=== PATIENT | male | born 1980 | race African-American/Black ===

== ENCOUNTER 2017-08-02 12:50 | Emergency (ER) | payer OTHER, SELFPAY | END 2017-08-02 13:09 | disposition home or self-care (01) | LOC: NAV ERS 12:50 | DX: F12.10 Cannabis abuse, uncomplicated (principal); F17.210 Nicotine dependence, cigarettes, uncomplicated | CPT/HCPCS: 99282 ==

== ENCOUNTER 2019-05-16 16:58 | Emergency (ER) | payer OTHER, SELFPAY ==
--- NOTE | 2019-05-16 17:43 | RAD ---
EXAM: Chest 2 views: HISTORY: Evaluate for foreign body. Shortness of breath. COMPARISON: None. FINDINGS: There is a normal-sized cardiomediastinal silhouette. No radiopaque foreign body is seen. There is no evidence of consolidation, mass, or pleural effusion. The bones are unremarkable. IMPRESSION: No evidence of acute cardiopulmonary disease
--- NOTE | 2019-05-16 17:47 | RAD ---
EXAM: 2 views of the neck soft tissue HISTORY: Plastic stuck in throat COMPARISON: None FINDINGS: There is no evidence of radio opaque foreign body. No prevertebral soft tissue swelling is seen. Th e bones are unremarkable. IMPRESSION: Unremarkable exam
== END 2019-05-16 18:25 | disposition home or self-care (01) ==
LOC: NAV ERS 16:58
DX: T18.108A Unspecified foreign body in esophagus causing other injury, initial encounter (principal); R00.0 Tachycardia, unspecified; F17.210 Nicotine dependence, cigarettes, uncomplicated
CPT/HCPCS: 70360; 71046; 93005

== ENCOUNTER 2020-02-01 16:16 | Emergency (ER) | payer SELFPAY ==
[2020-02-01] MEDS ORDERED: Adacel (T-DAP) 0.5 ML SYRINGE ONE (17:00)
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
[2020-02-01] MEDS ORDERED: Bacitracin 1 PK ONE (17:13)
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
== END 2020-02-01 17:40 | disposition home or self-care (01) ==
LOC: NAV ERS 16:16
DX: S43.401A Unspecified sprain of right shoulder joint, initial encounter (principal); S40.011A Contusion of right shoulder, initial encounter; R21 Rash and other nonspecific skin eruption; F17.210 Nicotine dependence, cigarettes, uncomplicated; V86.59XA Driver of other special all-terrain or other off-road motor vehicle injured in nontraffic accident, initial encounter
CPT/HCPCS: 71046; 90471; 90715

== ENCOUNTER 2020-05-30 09:14 | Emergency (ER) | payer SELFPAY ==
[2020-05-30] MEDS ORDERED: Ibuprofen 800 MG TAB ONE (10:03)
== END 2020-05-30 10:10 | disposition home or self-care (01) ==
LOC: NAV ERS 09:14
DX: K02.9 Dental caries, unspecified (principal); F17.210 Nicotine dependence, cigarettes, uncomplicated
CPT/HCPCS: 99282

== ENCOUNTER 2021-01-04 19:41 | Emergency (ER) | payer SELFPAY | END 2021-01-04 20:45 | disposition home or self-care (01) | LOC: NAV ERS 19:41 | DX: M54.5 Low back pain (principal); F17.210 Nicotine dependence, cigarettes, uncomplicated | CPT/HCPCS: 99283 ==